=== PATIENT | female | born 1945 | race Caucasian/White ===

== ENCOUNTER → 2016-09-25 | Day surgery (SDC) | payer MEDICARE ==
[~2016-09-25] VITALS: Ht 160 cm; Wt 62.2 kg
[~2016-09-25] MED LIST: ALENDRONATE SOD70 MG PO; ALEVE220 M1 PO; ASPIRIN LO-DOSE81 MG PO; AVAPRO150 MG PO; CALTRATE 600 +1 EAC1 PO; COSOPT DROPS 1010 ML OPHTH; DRISDOL 5050000 UNIT PO; FLAX OIL1000 MG PO; FLEXERIL10 MG PO; HYDRODIURIL25 MG PO; LEXAPRO20 MG PO; LIPITOR80 MG PO; PROTONIX40 MG PO; VITAMIN D50000 UNIT PO
== END | disposition disaster alternative care site (69) ==
LOC: GPOC 09-23 15:00 → GEND 07:44 → GPOC 08:00
PROC: 0DB58ZX Excision of Esophagus, Via Natural or Artificial Opening Endoscopic, Diagnostic (ICD-10-PCS; principal; 2016-09-25)
PROC: 0DB68ZX Excision of Stomach, Via Natural or Artificial Opening Endoscopic, Diagnostic (ICD-10-PCS; 2016-09-25)
PROC: 0DB98ZX Excision of Duodenum, Via Natural or Artificial Opening Endoscopic, Diagnostic (ICD-10-PCS; 2016-09-25)
PROC: 0D758ZZ Dilation of Esophagus, Via Natural or Artificial Opening Endoscopic (ICD-10-PCS; 2016-09-25)
PROC: 0DBK8ZZ Excision of Ascending Colon, Via Natural or Artificial Opening Endoscopic (ICD-10-PCS; 2016-09-25)
PROC: 0DBK8ZZ Excision of Ascending Colon, Via Natural or Artificial Opening Endoscopic (ICD-10-PCS; 2016-09-25)
PROC: 0DBN8ZZ Excision of Sigmoid Colon, Via Natural or Artificial Opening Endoscopic (ICD-10-PCS; 2016-09-25)
DX: Z12.11 Encounter for screening for malignant neoplasm of colon (principal); K63.5 Polyp of colon; K31.89 Other diseases of stomach and duodenum; K44.9 Diaphragmatic hernia without obstruction or gangrene; K25.9 Gastric ulcer, unspecified as acute or chronic, without hemorrhage or perforation; I12.9 Hypertensive chronic kidney disease with stage 1 through stage 4 chronic kidney disease, or unspecified chronic kidney disease; N18.3 Chronic kidney disease, stage 3 (moderate); I25.10 Atherosclerotic heart disease of native coronary artery without angina pectoris; F32.9 Major depressive disorder, single episode, unspecified; E78.2 Mixed hyperlipidemia; I99.8 Other disorder of circulatory system; E55.9 Vitamin D deficiency, unspecified; F17.211 Nicotine dependence, cigarettes, in remission; E66.3 Overweight; Z68.25 Body mass index [BMI] 25.0-25.9, adult; Z98.41 Cataract extraction status, right eye; Z86.010 Personal history of colon polyps; Z98.42 Cataract extraction status, left eye; Z98.890 Other specified postprocedural states; Z79.82 Long term (current) use of aspirin; Z79.899 Other long term (current) drug therapy
CPT/HCPCS: C1726; J1610; J2001; J7030

== ENCOUNTER → 2016-09-30 | Outpatient (CLI) | payer MEDICARE | END | disposition disaster alternative care site (69) | LOC: GRAD 06:57 → GOPP 07:00 | DX: R10.9 Unspecified abdominal pain (principal); D17.79 Benign lipomatous neoplasm of other sites; I70.90 Unspecified atherosclerosis | CPT/HCPCS: J2001; J7030; Q9967 ==